=== PATIENT | male | born 1980 | race Caucasian/White ===

== ENCOUNTER 2016-11-15 18:42 | Emergency (ER) | payer MEDICAID ==
[~2016-11-15] VITALS: Ht 180.3 cm; Wt 90.7 kg
--- NOTE | 2016-11-15 18:45 | NUR ---
PT CALLED TO TRIAGE, PT NOT IN WAITING ROOM
--- NOTE | 2016-11-15 19:00 | NUR ---
TO BED 7 A 36 YO MALE BISELF FOR ABSCESS TO R INNER THIGH X 1 WEEK. PATIENT IS AFEBFILE. VSS. INITIATED COMFORT MEASURES. GOWNED. AWAITING FOR ER MD BOLANOS.
--- NOTE | 2016-11-15 19:30 | NUR ---
DATA BASE ADMINISTRATOR MARSI AT BEDSIDE FOR INCISION AND DRAINAGE.
--- NOTE | 2016-11-15 19:50 | NUR ---
Wound care done. Dressing intact and clean, no bleeding noted. Patient discharged to home in stable condition. Written and verbal after care instructions given. Patient verbalizes understanding of instruction. Patient is ambulatory with steady gait. no further complaints.
[2016-11-15 19:58] VITALS: BP 128/80
== END 2016-11-15 20:03 | disposition home or self-care (01) ==
LOC: ER 18:44
DX: L02.214 Cutaneous abscess of groin (principal); Z88.1 Allergy status to other antibiotic agents
CPT/HCPCS: A4606; A6402; Z7610

== ENCOUNTER 2016-11-23 18:22 | Emergency (ER) | payer MEDICAID ==
[~2016-11-23] VITALS: Ht 180.3 cm; Wt 90.7 kg
[2016-11-23 18:26] VITALS: BP 143/93
== END 2016-11-23 18:52 | disposition home or self-care (01) ==
LOC: ER 18:24
DX: L02.214 Cutaneous abscess of groin (principal); Z88.1 Allergy status to other antibiotic agents
CPT/HCPCS: 99283; A4606; Z7610

== ENCOUNTER 2018-03-17 17:35 | Inpatient (IN) | payer SELFPAY ==
[~2018-03-17] VITALS: Ht 180.3 cm; Wt 96.6 kg
--- NOTE | 2018-03-17 17:59 | NUR ---
PATIENT TO ED DT PRESSURE LIKE CHEST PAIN X 2 MOS, ON AND OFF, 10/08 AT THIS TIME,. PATIENT IS AWAKE AND ALERT, PATIENT NOTED WITH BLE EDEMA, CO OCCASIONAL SOB, PATIENT WAS NEVER SEEN BY MD.PATIENT'S VS STABLE AT THIS TIME. MD AT BS.
[2018-03-17] MEDS ORDERED: NITROGLYCERIN PACKET 1 GM PACKET TD ONE (18:00)
[2018-03-17] MEDS ORDERED: ASPIRIN 325 MG TABLET PO ONE (18:00)
--- NOTE | 2018-03-17 18:02 | NUR ---
IV ACCESSED TO LAC 20. BLOOD SAMPLE COLLECTED AND SENT TO LAB
[2018-03-17] MEDS ORDERED: NITROGLYCERIN PACKET 1 GM PACKET ONE (18:04)
[2018-03-17] MEDS ORDERED: ASPIRIN 325 MG TABLET ONE (18:04)
[2018-03-17 18:07] LABS: BASOPHILS # (AUTO) 0.1 /CMM (0.0-0.2); BASOPHILS % (AUTO) 1.6 % (0.0-2.0); HEMATOCRIT 47 % (39-51); HEMOGLOBIN 15.3 g/dL (13.5-17.5); LYMPHOCYTES # (AUTO) 1.8 /CMM (0.8-4.8); LYMPHOCYTES % (AUTO) 26.5 % (20.0-44.0); MEAN CORPUSCULAR HEMOGLOBIN 29 PG (26.0-33.0); MEAN CORPUSCULAR HGB CONC 33 g/dl (31.0-36.0); MEAN CORPUSCULAR VOLUME 89 fL (80-96); MONOCYTES # (AUTO) 0.5 /CMM (0.1-1.30); MONOCYTES % (AUTO) 7.7 % (2.0-12.0); NEUTROPHILS # (AUTO) 4.4 /CMM (1.8-8.9); NEUTROPHILS % (AUTO) 63.2 % (43.0-81.0); PLATELET COUNT (AUTO) 207 /CMM (150-450); RDW COEFFICIENT OF VARIATION 15.6 (11.5-15.0); RED BLOOD CELL COUNT(AUTO) 5.28 MIL/uL (4.5-6.0); WHITE BLOOD COUNT (AUTO) 6.9 K/uL (4.3-11.0)
[2018-03-17 18:18] LABS: CALCIUM, SERUM 9.2 mg/dL (8.5-10.1); CARBON DIOXIDE 30 mmol/L (21-32); CHLORIDE 100 mmol/L (98-107); CREATININE 0.8 mg/dL (0.6-1.3); GLUCOSE 152 mg/dL (74-106); POTASSIUM 4.1 mmol/L (3.5-5.1); SODIUM SERUM 135 mmol/L (136-145); UREA NITROGEN, BLOOD 9 mg/dL (7-18)
[2018-03-17 18:21] LABS: INR 1.13 (0.85-1.15)
[2018-03-17 18:25] LABS: TROPONIN I < 0.017 ng/mL (0.00-0.056)
[2018-03-17 18:30] LABS: ALANINE AMINOTRANSFERASE 22 U/L (12-78); ALBUMIN 3.9 g/dL (3.4-5.0); ALKALINE PHOSPHATASE 172 U/L (46-116); ASPARTATE AMINOTRANSFERASE 26 U/L (15-37); B-TYPE NATRIURETIC PEPTIDE 2164 PG/ML (0-125); BILIRUBIN,DIRECT 0.8 mg/dL (0.0-0.2); BILIRUBIN,TOTAL 2.1 mg/dL (0.2-1.0); TOTAL PROTEIN, SERUM 7.9 g/dL (6.4-8.2)
[2018-03-17] MEDS ORDERED: FUROSEMIDE 40 MG/4 ML VIAL IV ONE (19:00)
--- NOTE | 2018-03-17 19:31 | NUR ---
Received report from COLLAR SETTERMINISTERIO Barbour for pt's SEE. Found pt awake, resting in bed comfortably. No s/s of acute distress or sob noted at this time.
[2018-03-17] MEDS ORDERED: FUROSEMIDE 40 MG/4 ML VIAL ONE (19:49)
--- NOTE | 2018-03-17 20:00 | NUR ---
lasix 40mg iv given. urinal given at bedside.
[2018-03-17] MEDS ORDERED: SIMVASTATIN 20 MG TABLET PO ONE (20:30)
[2018-03-17] MEDS ORDERED: DEXTROSE 50%-WATER 50 ML DISP.SYRIN IV PRN (20:30)
[2018-03-17] MEDS ORDERED: NITROGLYCERIN 0.4 MG/TAB BOTTLE SL PRN (20:30)
--- NOTE | 2018-03-17 21:33 | NUR ---
Report given to [facility] MINISTERIO Zamora. Patient being transported per ACLS protocol. VS stable.
[2018-03-17 21:40] VITALS: BP 129/96
--- NOTE | 2018-03-17 21:40 | NUR ---
TELERN RECEIVED FROM ER VIA DEMARIO A 37 Y/O MALE ACCPD BY HIS MOTHER WITH CC OF SOB ON AND OFF FOR 2 MOS. INITIALLY DENIES ANY MEDICAL HISTORY. STATED WAS CHECKING AND TAKING INSULIN BEFORE AND NOT DIABETIC ANYMORE. ABD SOFT DISTENDED, MILD PITTING EDEMA JUSTIN LOWER EXTREMITIES, STATED HAS FREQ URINATION AFTER LASIX IVP WAS GIVEN IN ER. NO SOB SEEN,PAINFREE. VERY HUNGRY, FOOD PROVIDED. ALL INFO FORM PATIENT A ND MOTHER OF PATIENT. ORIENTED TO ROOM FACILITIES, CALL LIGHT USE REVIEWED WITH PATIENT. KEPT COMFORTABLE TO CONTINUE.
[2018-03-17] MEDS ORDERED: SIMVASTATIN 20 MG TABLET ONE (22:47)
[2018-03-17] MEDS: ENOXAPARIN SODIUM 40 MG/0.4 ML DISP.SYRIN SQ SCH (22:57)
[2018-03-17] MEDS: BLOOD SUGAR DIAGNOSTIC 1 EACH STRIP IN SCH (22:58)
--- NOTE | 2018-03-17 23:01 | NUR ---
TELERN LATE MEDS ADMINISTERED. BS 202. PATIENT JUST HAD LATE DINNER. NO OTHER DISCOMFORTS MADE. REMINDED TO CALL STAFF FOR ANY ASSISTANCE OF DISCOMFORTS.CALL LIGHT WITHIN REACH
[2018-03-18 00:15] VITALS: BP 132/70
--- NOTE | 2018-03-18 00:24 | NUR ---
CHARLES SLEEPING OF THIS TIME, CLOSELY WATCHED.
--- NOTE | 2018-03-18 01:30 | NUR ---
TELERN INSTRUCTED NPO FOR NOW TILL SEEN BY LABORATORY SUPERVISOR
[2018-03-18 04:00] VITALS: BP 106/68
[2018-03-18 04:34] VITALS: BP 106/68
--- NOTE | 2018-03-18 07:01 | NUR ---
TELERN BS 142. NOT COVERED AT THIS TIME, PATIENT NPO TILL SEEN BY PAN DEVULCANIZER. WEIGHT TODAY 214.6 LBS
[2018-03-18 07:41] LABS: ALBUMIN 3.1 g/dL (3.4-5.0); BILIRUBIN,TOTAL 1.9 mg/dL (0.2-1.0); CALCIUM, SERUM 8.6 mg/dL (8.5-10.1); CREATININE 0.7 mg/dL (0.6-1.3); POTASSIUM 3.8 mmol/L (3.5-5.1); TOTAL PROTEIN, SERUM 6.5 g/dL (6.4-8.2)
[2018-03-18 08:00] VITALS: BP 124/70
[2018-03-18] MEDS: FUROSEMIDE 40 MG/4 ML VIAL IV SCH ×2 (08:14→17:03)
[2018-03-18] MEDS: LISINOPRIL (10MG) 10 MG TABLET PO SCH (08:14)
[2018-03-18] MEDS: BLOOD SUGAR DIAGNOSTIC 1 EACH STRIP IN SCH ×4 (08:15→20:56)
[2018-03-18] MEDS: ASPIRIN 325 MG TABLET PO SCH (08:15)
[2018-03-18] MEDS: NICOTINE PATCH (14MG) 14 MG PATCH.TD24 TD SCH (08:15)
[2018-03-18 08:16] LABS: HEMATOCRIT 40 % (39-51); HEMOGLOBIN 13.5 g/dL (13.5-17.5); MEAN CORPUSCULAR HEMOGLOBIN 30 PG (26.0-33.0); MEAN CORPUSCULAR HGB CONC 34 g/dl (31.0-36.0); MEAN CORPUSCULAR VOLUME 89 fL (80-96); NEUTROPHILS % (AUTO) 59.9 % (43.0-81.0); PLATELET COUNT (AUTO) 165 /CMM (150-450); RDW COEFFICIENT OF VARIATION 16 (11.5-15.0); RED BLOOD CELL COUNT(AUTO) 4.49 MIL/uL (4.5-6.0); WHITE BLOOD COUNT (AUTO) 6.6 K/uL (4.3-11.0)
[2018-03-18 08:17] LABS: BASOPHILS % (AUTO) 0.6 % (0.0-2.0); EOSINOPHILS % (AUTO) 1.2 % (0.0-6.0); LYMPHOCYTES % (AUTO) 28.6 % (20.0-44.0); MONOCYTES % (AUTO) 9.7 % (2.0-12.0)
[2018-03-18] MEDS: CARVEDILOL 6.25 MG TABLET PO SCH ×2 (11:09→20:48)
[2018-03-18] MEDS ORDERED: IOHEXOL-350 100 ML VIAL IV ONE (12:12)
[2018-03-18] MEDS ORDERED: METOPROLOL TARTRATE INJ 5 MG/5 ML AMPUL ONE ×2 (12:53→13:23)
[2018-03-18] MEDS ORDERED: LISI10TA59 PO (13:34)
[2018-03-18] MEDS ORDERED: ASPI-992 PO (13:34)
[2018-03-18] MEDS ORDERED: FURO-145 PO (13:34)
[2018-03-18] MEDS ORDERED: CARV6.252 PO (13:34)
[2018-03-18 16:00] VITALS: BP 117/79
--- NOTE | 2018-03-18 16:09 | NUR ---
PATIENT AAOX4 ALL FOLLOW COMMANDS ROOM AIR NO SOB NON LABORED BREATHING TELE;S TACHY DENIED CHEST PAIN ANY PAIN SKIN IS DRY INTACT BLE MILD EDEMA BUT IMPROVED PT ABLE TO AMBULATION WITHOUT ASSISTANCE PT CT ANGIOGRAM DONE NPO REMOVED DIET TOLERATED WILL CONTINUE MONITOR CLOSE OBSERVATION
[2018-03-18] MEDS: INSULIN REGULAR, HUMAN 100 UNIT/ML 3 ML VIAL SQ PRN ×2 (18:32→20:59)
--- NOTE | 2018-03-18 19:45 | NUR ---
BUSINESS OBJECTS ARCHITECT INITIAL NOTES SEEN PT IN BED WHILE GETTING REPORT FROM AM NURSE. HE'S AWAKE AND ALERT TALKING TO HIS FAMILY AT THE BEDSIDE. DX OF CHF. PT AWARE OF HIS FLUID RESTRICTIONS . ABLE TO AMBULATE , DENIES ANY PAIN OR ANY DISCOMFORT. NO SOB NOTED EVEN IN ROOM AIR. HEPLOCK AT THIS TIME PATENT AND INTACT. NO SIGNS OF REDNESS OR INFILTRATION NOTED WHILE FLUSHING WITH NS. KEPT HIM COMFORTABLE ALL THE TIME. WILL CONTINUE MONITORING. CALL LIGHT AT REACH.
[2018-03-18 20:00] VITALS: BP 118/86
[2018-03-18] MEDS: ENOXAPARIN SODIUM 40 MG/0.4 ML DISP.SYRIN SQ SCH (20:50)
--- NOTE | 2018-03-18 21:00 | NUR ---
MS BENCH BORING MACHINE OPERATOR NOTES ROUTINE MEDS GIVEN AND BLOOD SUGAR CHECKED DONE 143, 2UNITS OF INSULIN GIVEN TUR SQ ORDERED. SNACKS ALSO SERVED. NO SIGNS OF HYPO/HYPER GLYCEMIA NOTED. WILL CONTINUE MONITORING.
--- NOTE | 2018-03-19 00:16 | NUR ---
MS ENGRAVER PANTOGRAPH NOTES CHECKED PT HE'S SLEEPING COMFORTABLY IN BED WITHOTU ANY ACUTE DISTRESS NOTED.
[2018-03-19] MEDS: BLOOD SUGAR DIAGNOSTIC 1 EACH STRIP IN SCH ×3 (06:25→17:14)
--- NOTE | 2018-03-19 07:01 | NUR ---
MS LOSS PREVENTION ASSOCIATE CLOSING NOTES PT WOKE UP , DENIES ANY PAIN OR ANY DISCOMFORT. BLOOD SUGAR CHECKED DONE 102, NO SIGNS OF ANY HYPO GLYCEMIA NOTED. ALL DUE MEDS GIVEN AND ALL NEEDS MET. STABLE CLAYTON THE NIGHT AND SLEPT WELL. KEPT HIM WARM AND COMFORTABLE AT ALL TIMES. ENDORSE TO AM NURSE FOR CONTINUITY OF CARE. CALL LIGHT AT REACH.
[2018-03-19 07:13] LABS: ALBUMIN 3.1 g/dL (3.4-5.0); BILIRUBIN,TOTAL 1.9 mg/dL (0.2-1.0); CALCIUM, SERUM 8.7 mg/dL (8.5-10.1); CREATININE 0.7 mg/dL (0.6-1.3); MAGNESIUM 1.8 mg/dL (1.8-2.4); PHOSPHORUS 4.7 mg/dL (2.5-4.9); POTASSIUM 3.5 mmol/L (3.5-5.1); TOTAL PROTEIN, SERUM 6.6 g/dL (6.4-8.2)
[2018-03-19 08:00] VITALS: BP 125/80
[2018-03-19] MEDS: LISINOPRIL (10MG) 10 MG TABLET PO SCH (08:22)
[2018-03-19] MEDS: FUROSEMIDE 40 MG/4 ML VIAL IV SCH ×2 (08:22→17:14)
[2018-03-19] MEDS: ASPIRIN 325 MG TABLET PO SCH (08:23)
[2018-03-19] MEDS: CARVEDILOL 6.25 MG TABLET PO SCH (08:23)
[2018-03-19] MEDS: NICOTINE PATCH (14MG) 14 MG PATCH.TD24 TD SCH (08:23)
[2018-03-19] MEDS ORDERED: FURO40TA5 PO (09:31)
[2018-03-19] MEDS: INSULIN REGULAR, HUMAN 100 UNIT/ML 3 ML VIAL SQ PRN ×2 (11:59→17:16)
[2018-03-19 16:00] VITALS: BP 118/82
--- NOTE | 2018-03-19 18:18 | NUR ---
PATIENT AAOX4 ALL FOLLOW COMMANDS ROOM AIR NO SOB NON LABORED BREATHING PT DENIED CHEST PAIN ANY PAIN SKIN IS DRY INTACT NO EDEMA ON BLE OBSERVED DISCHARGE INSTRUCTION PROVIDED TO PT NEW MEDICATION DIET ACTIVITY MD FOLLOW UP PT VERBALIZED UNDERSTANDING WELL IV HELP LOCK REMOVED ALL BELONGS RELEASED PATIENT DISCHARGED TO HOME WITH FAMILY GAMALIELTANYAR AT 1820
== END 2018-03-19 18:18 | disposition home or self-care (01) | DRG 190 ==
LOC: ER 17:39 → TELE 20:14 → MED 03-18 11:02
PROVIDERS: ADMIT Registered Nurse; ATTEND Registered Nurse
DX: J44.1 Chronic obstructive pulmonary disease with (acute) exacerbation (principal); I50.33 Acute on chronic diastolic (congestive) heart failure; E87.0 Hyperosmolality and hypernatremia; I11.0 Hypertensive heart disease with heart failure; E66.9 Obesity, unspecified; R09.02 Hypoxemia; R60.0 Localized edema; E80.6 Other disorders of bilirubin metabolism; R73.9 Hyperglycemia, unspecified; F17.210 Nicotine dependence, cigarettes, uncomplicated; Z68.29 Body mass index [BMI] 29.0-29.9, adult; R59.0 Localized enlarged lymph nodes; R74.0 Nonspecific elevation of levels of transaminase and lactic acid dehydrogenase [LDH]
CPT/HCPCS: 36415; 71045-TC; 75574; 80048-TC; 80053-TC; 80061-TC; 80076-TC; 82962-TC; 83735-TC; 83880; 84100-TC; 84484-TC; 85025-TC; 85730-TC; 87081-TC; 93307-TC; 93970-TC; A4606; J1650; J1815; J1940; J3490; Q9967; Z7610

== ENCOUNTER 2018-07-11 19:15 | Emergency (ER) | payer BC, MEDICAID ==
[~2018-07-11] VITALS: Ht 182.9 cm; Wt 89.4 kg
[~2018-07-11 19:15] MED LIST: ASPI-992 PO; CARV6.252 PO; FURO40TA5 PO; LISI10TA59 PO
[2018-07-11 19:28] VITALS: BP 153/102
== END 2018-07-11 20:50 | disposition home or self-care (01) ==
LOC: ER 19:17
DX: I11.0 Hypertensive heart disease with heart failure (principal); I50.9 Heart failure, unspecified; F17.200 Nicotine dependence, unspecified, uncomplicated; Z88.1 Allergy status to other antibiotic agents; Z79.899 Other long term (current) drug therapy; Z79.82 Long term (current) use of aspirin
CPT/HCPCS: 99283; A4606; Z7610

== ENCOUNTER 2023-07-18 14:37 | Emergency (ER) | payer BC ==
[~2023-07-18] VITALS: Ht 180.3 cm; Wt 85.3 kg
[~2023-07-18 14:37] MED LIST changes: +LISI10TA30 PO; -LISI10TA59 PO
[2023-07-18] MEDS ORDERED: FUROSEMIDE 40 MG/4 ML VIAL ONE (15:32)
[2023-07-18] MEDS: FUROSEMIDE 40 MG/4 ML VIAL IV ONE (15:39)
[2023-07-18 15:41] LABS: BASOPHILS % (AUTO) 0.6 % (0.0-2.0); EOSINOPHILS # (AUTO) 0.1 K/uL (0.0-0.7); EOSINOPHILS % (AUTO) 0.9 % (0.0-6.0); HEMATOCRIT 47 % (39-51); HEMOGLOBIN 15.2 g/dL (13.5-17.5); LYMPHOCYTES # (AUTO) 2.1 K/uL (0.8-4.8); LYMPHOCYTES % (AUTO) 27.2 % (20.0-44.0); MEAN CORPUSCULAR HEMOGLOBIN 31 PG (26.0-33.0); MEAN CORPUSCULAR HGB CONC 33 g/dl (31.0-36.0); MEAN CORPUSCULAR VOLUME 93 fL (80-96); MONOCYTES # (AUTO) 0.5 K/uL (0.1-1.30); MONOCYTES % (AUTO) 6.6 % (2.0-12.0); NEUTROPHILS % (AUTO) 64.7 % (43.0-81.0); PLATELET COUNT (AUTO) 210 K/uL (150-450); RED CELL DISTRIBUTION WIDTH 14.6 % (11.5-15.0); WHITE BLOOD COUNT (AUTO) 7.7 K/uL (4.3-11.0)
[2023-07-18 15:42] VITALS: BP 132/104; TEMP 98.4; O2SAT 100
[2023-07-18 15:56] LABS: INR 1.11 (0.91-1.10); PARTIAL THROMBOPLASTIN TIME 28.5 SEC (24.3-34.3); PROTHROMBIN TIME 11.7 SECS (9.2-11.1)
[2023-07-18 16:01] LABS: ALANINE AMINOTRANSFERASE 33 U/L (12-78); ALBUMIN 3.5 g/dL (3.4-5.0); ALKALINE PHOSPHATASE 105 U/L (46-116); ASPARTATE AMINOTRANSFERASE 19 U/L (15-37); BILIRUBIN,DIRECT 0.3 mg/dL (0.0-0.2); BILIRUBIN,TOTAL 0.9 mg/dL (0.2-1.0); CARBON DIOXIDE 25 mmol/L (21-32); CHLORIDE 98 mmol/L (98-107); CREATININE 0.9 mg/dL (0.6-1.3); GLUCOSE 196 mg/dL (74-106); NT-PRO BNP 2754 pg/mL (0-125); SODIUM SERUM 134 mmol/L (136-145); TOTAL PROTEIN, SERUM 7.4 g/dL (6.4-8.2); UREA NITROGEN, BLOOD 8 mg/dL (7-18)
[2023-07-18] MEDS ORDERED: METF-440 PO (17:54)
[2023-07-18] MEDS ORDERED: FURO-144 PO (17:54)
[2023-07-18] MEDS ORDERED: CHOL500062 PO (17:54)
[2023-07-18] MEDS ORDERED: ASPI-1420 PO (17:54)
== END 2023-07-18 21:00 | disposition left against medical advice (07) ==
LOC: ER 14:43
DX: I11.0 Hypertensive heart disease with heart failure (principal); I50.9 Heart failure, unspecified; E11.9 Type 2 diabetes mellitus without complications; F17.200 Nicotine dependence, unspecified, uncomplicated; Z79.82 Long term (current) use of aspirin; Z79.899 Other long term (current) drug therapy; Z88.1 Allergy status to other antibiotic agents
CPT/HCPCS: 99285; 96374; 71045; 93005; 85025; 80048; 80076; 36415; 84484; 85730; 83880; J1940